=== PATIENT | male | born 1970 | race Two or more races ===

== ENCOUNTER 2025-04-18 11:04 | Emergency (ER) | payer OTHER, MEDICAID ==
[~2025-04-18] VITALS: Ht 170.2 cm; Wt 68.0 kg
[2025-04-18 11:58] LABS: Hematocrit 30.6 % (41.0-53.0); Hemoglobin 9.8 g/dL (13.5-17.5); Mean Corpuscular Hemoglobin 27.3 pg (28.0-32.0); Mean Corpuscular Volume 85.6 fL (80.0-100.0); Nucleated Red Blood Cells % 0.0 %
[2025-04-18 12:12] LABS: Alanine Aminotransferase 29 U/L (7-40); Albumin 3.6 g/dL (3.2-4.8); Anion Gap 8 (5-15); BUN/Creatinine Ratio 26.4 (10.0-20.0); Blood Urea Nitrogen 14 mg/dL (9-23); Calcium 8.8 mg/dL (8.7-10.4); Potassium 3.8 mmol/L (3.5-5.1); Total Protein 6.0 g/dL (5.7-8.2)
[2025-04-18 12:14] LABS: Alkaline Phosphatase 430 U/L (46-116); Bilirubin, Total 1.4 mg/dL (0.2-1.0); Carbon Dioxide 32 mmol/L (20-31); Chloride 94 mmol/L (98-107); Glucose 110 mg/dL (74-106); Sodium 134 mmol/L (136-145)
--- NOTE | 2025-04-18 12:33 | DVH ---
EXAM: CT CT AB PEL WO CON-NO ORAL OR IV History: increasing abdominal distension Comparison Study: None TECHNIQUE: Multidetector spiral CT of the abdomen was performed from lung bases to pubic symphysis. Imaging was performed without IV contrast. Axial, coronal and sagittal multiplanar reformats were obtained from the axial data set by the technologist. Radiation Dose : 1. Abdomen/Pelvis: CTDIvol 13.11 mGy, DLP 848.25 mGy*cm. FINDINGS: Evaluation of solid organs is limited due to lack of intravenous contrast use. Lung Bases: Multiple rounded pulmonary nodules in the lung bases measuring up to 10 mm in the left lower lobe. Liver: Interval rounded hypodense liver lesions replacing the majority of the liver parenchyma. Liver is enlarged. Gallbladder and Biliary Tree: Unremarkable Spleen: Unremarkable Pancreas: The pancreas is grossly normal in appearance. Adrenal Glands: Unremarkable Kidneys: Kidneys are grossly normal without calculi or hydronephrosis. Bladder: Grossly unremarkable for degree of distention. Bowel: Marked stool filled distention of the colon with fairly abrupt transition at the distal sigmoid colon with probable underlying annular constricting lesion extending over a distance of 3.6 cm. Ascites: Small volume of ascites. Lymphadenopathy: No mesenteric, retroperitoneal or periportal lymphadenopathy. Abdominal Wall and Mesentery: Unremarkable. Vasculature: The visualized abdominal aorta is normal in size and caliber. Evaluation of abdominal and pelvic vessels is limited due to lack of intravenous contrast. Pelvic Organs: Unremarkable Musculoskeletal: No aggressive focal bony lesions, acute fractures or dislocation. 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 Surgical consultation recommended. Few rounded pulmonary nodules at the lung bases highly concerning for metastatic disease. Radiation optimization: All CT scans at this facility use at least one of these dose optimization techniques: automated exposure control mA and/or kV adjustment per patient size (includes targeted exams where dose is matched to clinical indication) or iterative reconstruction.
--- NOTE | 2025-04-18 12:54 | ED.PDOC ---
GI ASSESSMENT HPI Comments Patient is a 55-year-old male with past medical history of schizophrenia who was brought in from urgent care due to increasing abdominal distention And elevated LFTs. According to the patient, he has been having increasing abdominal distention for the last 4 months associated with generalized weakness which has progressively been worsening. According to the patient last week he was grocery shopping when he felt really weak and faint and had to sit down which is unusual for the patient, he subsequently called [facility] to take him to the urgent care last Wednesday. Denies having similar symptoms in the past. On review of systems patient is complaining of a dry cough, nausea and some diarrhea. Past medical history: Schizophrenia Past surgical history: right arm and shoulder surgery Social & Personal history: quit smoking in December prior to that was smoking half a pack per day for 35 years. Denies drinking alcohol, last drink at the age of 23. Denies using drugs. Patient seen and examined at bedside. Patient is alert and oriented to time, place person and responding to all questions. Eyes: No Pain, No Vision change, No Conjunctivae inflammation, No Eyelid inflammation, No Other, No Redness ENT: No Ear pain, No Ear discharge, No Nose pain, No Nose discharge, No Nose congestion, No Mouth pain, No Mouth swelling, No Throat pain, No Throat swelling, No Other Cardiovascular: No Chest Pain, No Palpitations, No Orthopnea, No Paroxysmal No Dyspnea, No Edema, No Lt Headedness, No Other Respiratory: Cough, No Dry, No Shortness of breath, No SOB with exertion, No Wheezing, No Hemoptysis, No Pleuritic Pain, No Sputum, No Other Gastrointestinal: Nausea, No Vomiting, No Abdominal Pain, Diarrhea, No Constipation, No Melena, No Hematochezia, No Other Genitourinary: No Dysuria, No Frequency, No Incontinence, No Hematuria, No Retention, No Other Musculoskeletal: No other, No neck pain, No shoulder pain, No arm pain, No back pain, No hand pain, No leg pain, No foot pain Skin: No Rash, No Lesions, No Jaundice, No Bruising, No Other Chief Complaint: Abdominal Pain Time Seen by MD: 11:10 Constitutional: denies: chills, diaphoresis, fatigue, fever, malaise, sweats, weakness, others EENTM: denies: blurred vision, double vision, ear bleeding, ear discharge, ear drainage, ear pain, ear ringing, eye pain, eye redness, hearing loss, mouth pain, mouth swelling, nasal discharge, nose bleeding, nose congestion, nose pain, photophobia, tearing, throat pain, throat swelling, voice changes, others Respiratory: denies: cough, hemoptysis, orthopnea, SOB at rest, shortness of breath, SOB with excertion, stridor, wheezing, others Cardiovascular: denies: chest pain, dizzy spells, diaphoresis, Dyspnea on exertion, edema, irregular heart beat, left arm pain, lightheadedness, palpitations, PND, syncope, others Gastrointestinal: reports: abdominal pain; denies: abdomen distended, blood streaked bowels, constipated, diarrhea, dysphagia, difficulty swallowing, hematemesis, melena, nausea, poor appetite, poor fluid intake, rectal bleeding, rectal pain, vomiting, others Genitourinary: denies: burning, dysuria, flank pain, frequency, hematuria, incontinence, penile discharge, penile sore, pain, testicle pain, testicle swelling, urgency, others Neurological: denies: dizziness, fainting, headache, left sided numbness, left sided weakness, numbness, paresthesia, pre-existing deficit, right sided numbness, right sided weakness, seizure, speech problems, tingling, tremors, weakness, others Musculoskeletal: denies: back pain, gout, joint pain, joint swelling, muscle pain, muscle stiffness, neck pain, others Integumetry: denies: bruises, change in color, change in hair/nails, dryness, laceration, lesions, lumps, rash, wounds, others Allergic/Immunocompromised: denies: Difficulty Healing, Frequent Infections, Hives, Itching, others Hematologic/Lymphatic: denies: anemia, blood clots, easy bleeding, easy bruising, swollen glands, others Endocrine: denies: excessive hunger, excessive sweating, excessive thirst, excessive urination, flushing, intolerance to cold, intolerance to heat, unexplained weight gain, unexplained weight loss, others Psychiatric: denies: anxiety, bipolar disorder, depression, hopeless, panic disorder, schizophrenia, sleepless, suicidal, others Physical Exam General Appearance: Moderate Distress HEENT: Normal ENT Inspection, PERRL/EOMI, Scleral Icterus (L) Neck: None, Non-Tender, Normal, Normal Inspection Respiratory: Lungs Clear, No Accessory Muscle Use, No Respiratory Distress Cardiovascular: Tachycardia Breast Exam: Deferred Gastrointestinal: Distended Genitalia: Deferred Pelvic: Deferred Rectal: Rectal Exam not done Extremities: No calf tenderness, Normal inspection, Normal range of motion, Non-tender, No pedal edema Neurologic: Alert, No Motor Deficits, No Sensory Deficits Cerebellar Function: NOT DONE Reflexes: NOT DONE Skin: Dry, None, Normal Color Peripheral Pulses: 2+ dorsalis pedis (R), 2+ dorsalis pedis (L) Lymphatic: NOT DONE Was a procedure done? Was a procedure done?: No GI differential Dx Differential Diagnosis: Bowel Obstruction, Mass X-Ray, Labs, Meds, VS Vital Signs Date Time Temp Pulse Resp B/P (MAP) Pulse Ox O2 Delivery O2 Flow Rate FiO2 04/18/25 23:38 98.1 101 18 138/87 (104) 97 98.1 04/18/25 22:10 20 95 Room Air* 0 21 04/18/25 22:00 97.5 99 20 126/76 (93) 95 97.5 04/18/25 21:17 97.7 104 16 132/81 (98) 99 97.7 04/18/25 15:05 97.9 100 16 112/65 (81) 98 97.9 04/18/25 11:35 98.8 114 16 112/72 98 98.8 04/18/25 11:13 110 Lab Test 04/18/25 11:39 Range/Units White Blood Count 11.6 H 4.4-10.8 10^3/uL Red Blood Count 3.57 L 4.5-5.90 10^6/uL Hemoglobin 9.8 L 13.5-17.5 g/dL Hematocrit 30.6 L 41.0-53.0 % Mean Corpuscular Volume 85.6 80.0-100.0 fL Mean Corpuscular Hemoglobin 27.3 L 28.0-32.0 pg Mean Corpuscular Hemoglobin Concent 31.9 L 32.0-36.0 g/dL Red Cell Distribution Width 17.5 H 11.8-14.3 % Platelet Count 313 140-450 10^3/uL Mean Platelet Volume 7.2 6.9-10.8 fL Neutrophils (%) (Auto) 76.8 37.0-80.0 % Lymphocytes (%) (Auto) 8.4 L 10.0-50.0 % Monocytes (%) (Auto) 14.7 H 0.0-12.0 % Eosinophils (%) (Auto) 0.0 0.0-7.0 % Basophils (%) (Auto) 0.1 0.0-2.0 % Neutrophils # (Auto) 8.9 H 1.6-8.6 10 ^3/uL Lymphocytes # (Auto) 1.0 0.4-5.4 10 ^3/uL Monocytes # (Auto) 1.7 H 0-1.3 10 ^3/uL Eosinophils # (Auto) 0 0-0.8 10 ^3/uL Basophils # (Auto) 0 0-0.2 10 ^3/uL Nucleated Red Blood Cells 0.0 % Sodium Level 134 L 136-145 mmol/L Potassium Level 3.8 3.5-5.1 mmol/L Chloride Level 94 L 98-107 mmol/L Carbon Dioxide Level 32 H 20-31 mmol/L Anion Gap 8 5-15 Blood Urea Nitrogen 14 9-23 mg/dL Creatinine 0.53 L 0.700-1.30 mg/dL Glomerular Filtration Rate Calc 120 >90 mL/min BUN/Creatinine Ratio 26.4 H 10.0-20.0 Serum Glucose 110 H 74-106 mg/dL Calcium Level 8.8 8.7-10.4 mg/dL Total Bilirubin 1.4 H 0.2-1.0 mg/dL Aspartate Amino Transferase (AST) 131 H 13-40 U/L Alanine Aminotransferase (ALT) 29 7-40 U/L Alkaline Phosphatase 430 H 46-116 U/L Ammonia 15 11-32 umol/L Total Protein 6.0 5.7-8.2 g/dL Albumin 3.6 3.2-4.8 g/dL The CBC shows an elevated white blood cell count of 11.6 The patient's shows anemia with a hemoglobin is 9.8 and hematocrit of 30.6 We did speak with the resident and she did call the general surgeon on-call and they stated that the patient should go to higher level of care. We have then contacting [facility] as well as other facilities with no accepting facilities The patient will be signed out to Dr. Trevizo Images Reviewed?: Images reviewed and evaluated by me Time of 1ST Reevaluation: 12:45 Reevaluation 1ST: Unchanged Patient Education/Counseling: Diagnosis, Treatment, Prognosis Family Education/Counseling: No Family Present SEPSIS Sepsis Screen Physician Orders Ct Ab Pel Wo Con-No Oral Or Iv (04/18/25 11:30) * Surgical Consult (04/18/25 ) Imaging Transfer Request (04/18/25 14:42) Vital Signs Date Time Temp Pulse Resp B/P (MAP) Pulse Ox O2 Delivery O2 Flow Rate FiO2 04/18/25 23:38 98.1 101 18 138/87 (104) 97 98.1 04/18/25 22:10 20 95 Room Air* 0 21 04/18/25 22:00 97.5 99 20 126/76 (93) 95 97.5 04/18/25 21:17 97.7 104 16 132/81 (98) 99 97.7 04/18/25 15:05 97.9 100 16 112/65 (81) 98 97.9 04/18/25 11:35 98.8 114 16 112/72 98 98.8 04/18/25 11:13 110 Laboratory Tests Test 04/18/25 11:39 White Blood Count 11.6 10^3/uL (4.4-10.8) H Departure 1 Departure Time of Disposition: 23:45 Impression: Primary Impression: Colonic mass Additional Impressions: Bowel obstruction Qualified Codes: K56.609 - Unspecified intestinal obstruction, unspecified as to partial versus complete obstruction Intractable abdominal pain Metastatic disease Qualified Codes: C79.9 - Secondary malignant neoplasm of unspecified site Disposition: 51 HOSPICE/MEDICAL FACILITY Condition: Guarded Comments Patient was transferred to [facility] for oncologic surgical evaluation and further management. Critical Care Note Critical Care Time?: No Stability Stability form required: Yes Stable for transfer: Intended for transfer, To designated facility Heart Score Heart Score: Heart Score Response (Comments) Value History N/A 0 EKG N/A 0 Age N/A 0 Risk Factors N/A 0 Troponin N/A 0 Total 0 KEI CALDERON Apr 18, 2025 12:53 REED ROWELL MD Apr 18, 2025 20:36
--- NOTE | 2025-04-18 13:56 | ECG ---
[facility] Test Date: 2025-04-18 Test Time: 11:13:22 Pat Name: ERICH CORDERO Department: ED Room: Gender: M [employer]: ER : 1970 Requested By: REED ROWELL Order Number: [id number] Reading MD: Vasquez Bell Measurements Intervals [place] Rate: 110 P: 71 MA: 128 QRS: 60 QRSD: 85 T: -2 QT: 345 QTc: 467 Interpretive Statements Sinus tachycardia Abnormal R-wave progression, early transition Borderline T abnormalities, diffuse leads Electronically Signed On 04-19-2025 20:09:52 PST by Vasquez Bell Please click the below link to view image of tracing.
[2025-04-18] MEDS: MORPHINE SULFATE 4 MG/ML SYR/VIAL IV ONE (21:30)
[2025-04-18] MEDS: ONDANSETRON HCL 4 MG/2 ML VIAL IV ONE (21:30)
[2025-04-18 22:10] VITALS: RESP 20; O2SAT 95
[2025-04-18 23:38] VITALS: BP 138/87; PULSE 101; RESP 18; TEMP 98.1; O2SAT 97
== END 2025-04-18 23:58 | disposition short-term general hospital (02) ==
LOC: ER 11:04 → EDBD 11:04 → ER 23:58
DX: C79.9 Secondary malignant neoplasm of unspecified site (principal); K63.89 Other specified diseases of intestine; K56.609 Unspecified intestinal obstruction, unspecified as to partial versus complete obstruction; R10.9 Unspecified abdominal pain; Z79.899 Other long term (current) drug therapy
CPT/HCPCS: 36415; 74176; 80053; 82140; 85025; 93005